=== PATIENT | female | born 1990 | race Caucasian/White ===

== ENCOUNTER 2023-12-07 22:24 | Emergency (ER) | payer OTHER, SELFPAY ==
[2023-12-07 22:31] VITALS: BP 135/92; PULSE 71; TEMP 36.5; O2SAT 100; BMI 22.6
--- NOTE | 2023-12-07 22:47 | PC.NURSE ---
Good radial pulse on left
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
[2023-12-07 23:22] LABS: Basophils Absolute Auto 0.1 10^3/uL (0.0-0.1); Basophils Percent Auto 0.7 % (0.2-2.0); Eosinophils Absolute Auto 0.2 10^3/uL (0.0-0.7); Eosinophils Percent Auto 1.9 % (0.9-7.0); Hematocrit 36.9 % (36.0-48.0); Hemoglobin 12.4 g/dL (12.0-16.0); Immature Granulocytes Abs Auto 0.02 10^3/uL (0.00-0.03); Immature Granulocytes Pct Auto 0.2 % (0.0-0.5); Lymphocytes Absolute Auto 1.2 10^3/uL (1.2-3.8); Mean Corpuscular HGB Conc 33.6 g/dL (29.9-35.2); Mean Corpuscular Hemoglobin 30.2 pg (26.7-34.0); Mean Platelet Volume 9.1 fL (9.5-13.5); Monocytes Absolute Auto 0.4 10^3/uL (0.3-0.8); Monocytes Percent Auto 5.2 % (1.7-12.0); Neutrophils Absolute Auto 6.2 10^3/uL (1.4-6.5); Platelet Count 322 10^3/uL (150-450); Red Cell Distribution Width 12.9 % (11.0-15.0)
[2023-12-07] MEDS: MORPHINE SULFATE 4 MG/ML VIAL IV (23:26)
[2023-12-07] MEDS: ADACEL DIPH,PERTUSS(ACELL),TET VAC/PF 0.5 ML ADULT SYRINGE IM (23:28)
[2023-12-07] MEDS: 0.9 % SODIUM CHLORIDE 1,000 ML 999 ML IV (23:30)
[2023-12-07 23:46] LABS: Alanine Aminotransferase 18 U/L (14-59); Albumin Globulin Ratio 1.4; Albumin Level 4.2 g/dL (3.4-5.0); Alkaline Phosphatase 55 U/L (46-116); Anion Gap 12.5; Aspartate Amino Transferase 16 U/L (15-37); BUN Creatinine Ratio 9.7; Bilirubin Total 0.3 mg/dL (0.2-1.0); Calcium 8.7 mg/dL (8.5-10.1); Carbon Dioxide 28.5 mmol/L (21.0-32.0); Chloride 104 mmol/L (98-107); Estimated GFR (African America >60 (>=60); Estimated GFR (Non-African Ame >60 (>=60); Globulin 3.1 g/dL; Glucose 102 mg/dL (74-106); Sodium 142 mmol/L (136-145); Total Protein 7.3 g/dL (6.4-8.2)
[2023-12-07 23:51] LABS: HCG Quantitative <1 mIU/mL; Lactate/Lactic Acid 2.4 mmol/L (0.4-2.0)
[2023-12-08] MEDS: KETOROLAC TROMETHAMINE 30 MG/ML VIAL IVP (00:37)
[2023-12-08 00:42] VITALS: BP 117/78; PULSE 55; O2SAT 100
--- NOTE | 2023-12-08 01:28 | ECG_ITS ---
The [facility] Test Date: 2023-12-08 Pat Name: LUIS CABRERA Department: Room: - Gender: Female Dry Room Attendant: : 1990 Requested By: REGINE SOLIZ Order Number: [id number] Reading MD: ROSIE HOGUE Measurements Intervals [place] Rate: 62 P: 57 ME: 168 QRS: 99 QRSD: 78 T: 57 QT: 424 QTc: 429 Interpretive Statements 1100 Sinus rhythm 1102 Sinus arrhythmia 3334 Anterolateral myocardial infarction, age undetermined 7102 Moderate right axis deviation 9150 abnormal ECG No previous ECG available for comparison Electronically Signed On 12-09-2023 16:46:44 EDT by ROSIE HOGUE
[2023-12-08] MEDS: POTASSIUM CHLORIDE IN WATER 10 MEQ/100 ML PIGGYBACK 100 MEQ IV (02:18)
[2023-12-08] MEDS: 0.9 % SODIUM CHLORIDE 500 ML IV (02:22)
[2023-12-08 02:35] VITALS: O2SAT 96
[2023-12-08 02:45] VITALS: BP 110/77; PULSE 65; TEMP 36.6; O2SAT 96
== END 2023-12-08 02:52 | disposition short-term general hospital (02) ==
PROVIDERS: Emergency Provider Internal Medicine; PCP Family Medicine
DX: S27.0XXA Traumatic pneumothorax, initial encounter (principal); S42.102A Fracture of unspecified part of scapula, left shoulder, initial encounter for closed fracture; S40.212A Abrasion of left shoulder, initial encounter; S30.811A Abrasion of abdominal wall, initial encounter; E87.6 Hypokalemia; V86.65XA Passenger of 3- or 4- wheeled all-terrain vehicle (ATV) injured in nontraffic accident, initial encounter; Z23 Encounter for immunization
CPT/HCPCS: 36415; 70450; 71260; 72125; 74177; 80053; 83605; 84702; 85025; 90471; 90715; 93005; 96365; 96375; 99285; J1885; J2270; J3480; Q9967